=== PATIENT | male | born 1995 | race African-American/Black ===

== ENCOUNTER 2020-04-16 15:13 | Emergency (ER) | payer OTHER, SELFPAY ==
[2020-04-16 15:28] VITALS: BP 135/69; PULSE 84; RESP 12; TEMP 36.8; O2SAT 100; BMI 28.7
--- NOTE | 2020-04-16 15:34 | DI.RAD.S_ITS ---
PROCEDURE: XR SHOULDER LT MIN 2V INDICATIONS: mayda jumping left shoulder dislocation TECHNIQUE: 3 views of the shoulder were acquired. COMPARISON: None. FINDINGS: Bones: No displaced fractures are seen. There is no glenohumeral joint dislocation. There is mild widening seen of the acromioclavicular joint, measuring 7 mm. No suspicious bony lesions. Visualized ribs appear intact. Soft tissues: No suspicious soft tissue calcifications. The visualized lung demonstrates an unremarkable appearance. IMPRESSION: No glenohumeral joint dislocation. No displaced fracture can be seen. Likely mild acromioclavicular separation. If clinically appropriate, please consider a dedicated acromioclavicular joint study, performed of both shoulders, without and with weights for further evaluation. Dictated by: Ruben Hahn M.D. on 04/16/2020 at 15:02 Approved by: Ruben Hahn M.D. on 04/16/2020 at 15:03
[2020-04-16] MEDS: ACETAMINOPHEN 325 MG TABLET 975 MG PO (16:26)
[2020-04-16] MEDS: IBUPROFEN 400 MG TABLET 800 MG PO (16:27)
--- NOTE | 2020-04-16 18:13 | ED.UPPEXIN ---
HPI - Extremity Injury (Upper) <SARAH Shay - Last Filed: 04/17/20 01:44> General Chief Complaint: Extremity Injury, Upper Stated Complaint: mayda jumping, dislocated left shoulder Time Seen by Provider: 04/16/20 16:57 Source: patient Mode of arrival: Ambulatory Limitations: no limitations History of Present Illness HPI narrative: Patient was not evaluated by myself. Patient was given Tylenol and Motrin after triage by a nurse. Patient was unable to locate after the room assignment. Related Data Allergies Allergy/AdvReac Type Severity Reaction Status Date / Time No Known Drug Allergies Allergy Verified 04/16/20 15:34 Patient History <SARAH Shay - Last Filed: 04/17/20 01:44> Social History Smoking Status: Current every day smoker Smoking Status: Current every day smoker tobacco type: vaping alcohol intake frequency: a few times a week Substance Use Type: does not use Exam <SARAH Shay - Last Filed: 04/17/20 01:44> Initial Vital Signs Initial Vital Signs: Vital Signs Temperature 98.2 F 04/16/20 15:28 Pulse Rate 84 04/16/20 15:28 Respiratory Rate 12 04/16/20 15:28 Blood Pressure 135/69 04/16/20 15:28 Pulse Oximetry 100 04/16/20 15:28 <David Brito MD - Last Filed: 04/17/20 07:53> Initial Vital Signs Initial Vital Signs: Vital Signs Temperature 98.2 F 04/16/20 15:28 Pulse Rate 84 04/16/20 15:28 Respiratory Rate 12 04/16/20 15:28 Blood Pressure 135/69 04/16/20 15:28 Pulse Oximetry 100 04/16/20 15:28 Course <SARAH Shay - Last Filed: 04/17/20 01:44> Orders Ordered: Discontinued Medications Acetaminophen (Tylenol) 975 mg PO NOW ONE Stop: 04/16/20 16:20 Last Admin: 04/16/20 16:26 Dose: 975 mg Documented by: DONITA Ibuprofen (Advil) 800 mg PO NOW ONE Stop: 04/16/20 16:20 Last Admin: 04/16/20 16:27 Dose: 800 mg Documented by: DONITA Vital Signs Vital signs: Vital Signs - 8 hr 04/16/20 15:28 Temperature 98.2 F Pulse Rate 84 Respiratory Rate 12 Blood Pressure 135/69 Pulse Oximetry 100 <David Brtio MD - Last Filed: 04/17/20 07:53> Orders Ordered: Discontinued Medications Acetaminophen (Tylenol) 975 mg PO NOW ONE Stop: 04/16/20 16:20 Last Admin: 04/16/20 16:26 Dose: 975 mg Documented by: DONITA Ibuprofen (Advil) 800 mg PO NOW ONE Stop: 04/16/20 16:20 Last Admin: 04/16/20 16:27 Dose: 800 mg Documented by: DONITA Vital Signs Vital signs: Vital Signs - 8 hr 04/16/20 15:28 Temperature 98.2 F Pulse Rate 84 Respiratory Rate 12 Blood Pressure 135/69 Pulse Oximetry 100 Discharge Plan Departure Patient Disposition: Left Without Being Seen Clinical Impression: Patient left before evaluation by physician Discharge Date/Time: 04/16/20 17:45
== END 2020-04-16 17:45 | disposition left against medical advice (07) ==
PROVIDERS: Emergency Provider Nurse Practitioner Family
DX: S49.92XA Unspecified injury of left shoulder and upper arm, initial encounter (principal); W16.42XA Fall into unspecified water causing other injury, initial encounter
CPT/HCPCS: 73030; 99284